=== PATIENT | female | born 1975 | race Hispanic/Latino ===

== ENCOUNTER 2019-01-20 10:02 | Outpatient (CLI) | payer OTHER ==
--- NOTE | 2019-01-20 11:32 | MMO ---
Bilateral MAMMO Bilat Diag [facility]. CLINICAL HISTORY: Patient is 43 years old and is seen for diagnostic exam and lump or thickening in the right breast at 5 o'clock. The patient has no family history of breast cancer. The patient has no personal history of cancer. VIEWS: The views performed were: bilateral craniocaudal with tomosynthesis; bilateral mediolateral oblique with tomosynthesis; and bilateral mediolateral with tomosynthesis. FILMS COMPARED: The present examination has been compared to a prior imaging study performed at [facility] on 01/20/2019. MAMMOGRAM FINDINGS: There are scattered fibroglandular densities. Finding 1: No mass or architectural distortion is seen in the left breast on mammogram or ultrasound in region of reported palpable abnormality at the 5:00 position. Finding 2: There is an intramammary lymph node seen in the upper-outer region of the right breast. There are no suspicious masses, suspicious calcifications, or new areas of architectural distortion. IMPRESSION: FINDING 1: FINDING IN THE LEFT BREAST IS BENIGN. NEGATIVE MAMMOGRAPHIC FINDINGS SHOULD NOT PRECLUDE BIOPSY OF A CLINICALLY SUSPICIOUS PALPABLE ABNORMALITY. FINDING 2: INTRAMAMMARY LYMPH NODE IN THE RIGHT BREAST IS BENIGN. A ROUTINE FOLLOW-UP MAMMOGRAM IN 1 YEAR IS RECOMMENDED. 3BTHE RESULTS OF THIS EXAM WERE SENT TO THE PATIENT.0B ACR BI-RADS Category 2 - Benign finding MAMMOGRAPHY NOTE: 1. A negative mammogram report should not delay a biopsy if a dominant of clinically suspicious mass is present. 2. Approximately 10% to 15% of breast cancers are not detected by mammography. 3. Adenosis and dense breasts may obscure an underlying neoplasm. Reported by: ANU ERVIN MD Electonically Signed: [id number]
--- NOTE | 2019-01-20 15:37 | ULT ---
LIMITED ULTRASOUND BILATERAL BREASTS: HISTORY: Reported palpable abnormality on clinical examination at the 5 o'clock position of left breast. Mamm ographic abnormality in the upper outer right breast on mammographic evaluation. FINDINGS: Limited sonographic evaluation of the left breast was performed at the 5 o'clock position reported ar ea of palpable abnormality. No mass or cystic lesion is seen in this region. No architectural disto rtion or mass is seen on mammographic evaluation. In the upper outer right breast on mammographic evaluation, there is a mass in the upper outer right breast which has the appearance most suggestive of a lymph node given the fatty area centrally. Limi taran sonographic evaluation was performed in this region, and no solid or cystic mass is seen. The ap pearance on mammographic evaluation is most suggestive of a lymph node. IMPRESSION: BIRADS category 2, benign findings. Routine annual mammographic screening is recommended. POS: OFF
== END 2019-01-20 10:03 | disposition home or self-care (01) ==
LOC: BICMAMMO 10:02
PROVIDERS: ATTEND Nurse Practitioner Family
DX: N63.23 Unspecified lump in the left breast, lower outer quadrant (principal)
CPT/HCPCS: 77066; G0279

== ENCOUNTER 2020-03-06 08:10 | Outpatient (CLI) | payer OTHER ==
--- NOTE | 2020-03-06 08:48 | MMO ---
Bilateral MAMMO Bilat Screen [facility]. CLINICAL HISTORY: Patient is 44 years old and is seen for screening. The patient has no family history of breast cancer. The patient has no personal history of cancer. VIEWS: The views performed were: bilateral craniocaudal with tomosynthesis and bilateral mediolateral oblique with tomosynthesis. FILMS COMPARED: The present examination has been compared to a prior imaging study performed at [facility] on 01/20/2019. This study has been interpreted with the assistance of computer-aided detection. MAMMOGRAM FINDINGS: There are scattered fibroglandular densities. There are no suspicious masses, suspicious calcifications, or new areas of architectural distortion. IMPRESSION: THERE IS NO MAMMOGRAPHIC EVIDENCE OF MALIGNANCY. A ROUTINE FOLLOW-UP MAMMOGRAM IN 1 YEAR IS RECOMMENDED. THE RESULTS OF THIS EXAM WERE SENT TO THE PATIENT. ACR BI-RADS Category 1 - Negative MAMMOGRAPHY NOTE: 1. A negative mammogram report should not delay a biopsy if a dominant of clinically suspicious mass is present. 2. Approximately 10% to 15% of breast cancers are not detected by mammography. 3. Adenosis and dense breasts may obscure an underlying neoplasm. Reported by: LATESHA ADAM MD Electonically Signed: [id number]
== END 2020-03-06 08:11 | disposition home or self-care (01) ==
LOC: BICMAMMO 08:10
PROVIDERS: ATTEND Nurse Practitioner Family
DX: Z12.31 Encounter for screening mammogram for malignant neoplasm of breast (principal)
CPT/HCPCS: 77063; 77067

== ENCOUNTER 2023-01-08 15:32 | Inpatient (IN) | payer BC, OTHER ==
[~2023-01-08 15:32] MED LIST: Iopamidol-370 76% 500 ML MDV (1 ML CHARGE) ONE
[2023-01-08] MEDS ORDERED: Promethazine HCl 25 MG/ML VIAL ONE (16:12)
[2023-01-08] MEDS ORDERED: Morphine 4 MG/ML VIAL ONE (16:12)
[2023-01-08 16:22] LABS: #Monocytes 0.2 thou/uL (0.11-0.59); #Neutrophils 8.1 thou/uL (1.40-6.50); %Basophils 0.3 % (0.0-1.0); %Lymphocytes 15.8 % (21.0-51.0); %Monocytes 2.3 % (0.0-10.0); %Neutrophils 81.2 % (42.0-75.0); Hemoglobin 14.4 g/dL (12.0-16.0); Mean Corpuscular HGB CONC 34.2 g/dL (32.0-36.0); Mean Corpuscular Hemoglobin 29.4 pg (27.0-31.0); Mean Corpuscular Volume 86.1 fl (78.0-98.0); Mean Platelet Volume 11.2 fL (7.4-10.4); Platelet Count 281 10x3/uL (130-400); RBC Distribution Width 13.2 % (11.5-14.5); Red Blood Cell (RBC) Count 4.89 mill/uL (4.20-5.40); White Blood Cell (WBC) Count 9.9 10x3/uL (4.8-10.8)
[2023-01-08 16:47] LABS: ALT (SGPT) 13 U/L (8-55); AST (SGOT) 14 U/L (5-34); Albumin 4.6 g/dL (3.5-5.0); Alkaline Phosphatase 43 U/L (40-110); Anion Gap 23 mmol/L (10-20); BUN (Urea Nitrogen) 15 mg/dL (7.0-18.7); Bilirubin, Total 0.6 mg/dL (0.2-1.2); Calc. Creatinine Clearance 0 mL/min (70-130); Calcium 9.8 mg/dL (7.8-10.44); Carbon Dioxide 18 mmol/L (22-29); Chloride 102 mmol/L (98-107); Estimated GFR 108; Globulin 3.9 g/dL (2.4-3.5); Glucose 176 mg/dL (70-105); Lipase 25 U/L (8-78); Potassium 4.2 mmol/L (3.5-5.1); Protein, Total 8.5 g/dL (6.0-8.3); Sodium 139 mmol/L (136-145)
[2023-01-08] MEDS ORDERED: Ondansetron PF 4 MG/2 ML Vial ONE (17:57)
[2023-01-08 18:32] LABS: Pregnancy Test - Urine (BHCG) Negative (Negative); Pregu Control Background? CLEAR/WHITE (CLR/WHITE); Pregu Control Bar Appear? YES (CONTROL BAR); Specific Gravity 1.029 (1.002-1.036)
[2023-01-08 19:03] LABS: Bacteria/HPF None Seen HPF (None Seen); Bilirubin Negative (Negative); Blood, Urine Negative (Negative); CAUTI Indications for Culture Pelvic or flank pain; Clarity Clear (Clear); Glucose, Urine (Dipstick) Greater than 1000 mg/dL (Negative); Ketone, Urine Greater than 150 mg/dL (Negative); Leukocyte 25 Leu/uL (Negative); Nitrite Negative (Negative); Protein, Urine (Dipstick) Negative (Neg-Trace); RBC/HPF 0-3 HPF (0-3); Specific Gravity, Urine 1.028 (1.002-1.036); Squamous Epithelial 0-3 HPF (0-3); Urobilinogen Normal mg/dL (Less than 2); WBC/HPF 0-3 HPF (0-3); pH, Urine 5.5 (5.0-9.0)
[2023-01-08 19:05] LABS: Urine Culture Reflex No No
[2023-01-08] MEDS ORDERED: D5 1/2 NS w/20 mEq KCL 1,000 ML IV PRN ×2 (19:15→20:33)
[2023-01-08] MEDS ORDERED: D5 1/2 NS w/20 mEq KCL 1,000 ML ONE (19:26)
[2023-01-08 20:02] LABS: Actual Bicarbonate (HCO3v) 16.6 mEq/L (22-28); Base Excess -8.8 mEq/L (-2.0 to +3.0); Calcium, Ionized (venous) 1.11 mmol/L (1.16-1.32); Chloride (VBG) 105 mmol/L (98-106); Hematocrit-VBG 43 % (36.0-47.0); Hemoglobin (Hb) 14.7 g/dL (11.7-16.0); Potassium (VBG) 4.29 mmol/L (3.70-5.30); Sodium 141.7 mmol/L (133-146); pH (venous) 7.303 (7.32-7.43)
[2023-01-08] MEDS ORDERED: INSULIN REGULAR IN 0.9 % NACL 100 UNITS/100 ML BAG ONE (20:23)
[2023-01-08] MEDS ORDERED: NS 0.9% w/ 20 MEQ KCL 1,000 ML IV PRN ×2 (20:33)
[2023-01-08] MEDS ORDERED: Dextrose 50% Abboject 50 ML SYRINGE SLOW IVP PRN (20:33)
[2023-01-08] MEDS ORDERED: Electrolyte Replacement Protocol 1 EACH IVPB PRN (20:33)
[2023-01-08] MEDS ORDERED: Sodium Chloride 0.9% 1,000 ML IV PRN ×4 (20:33)
[2023-01-08] MEDS ORDERED: Dextrose 5 %-0.45 % NaCl 1,000 ML IV PRN (20:33)
[2023-01-08] MEDS ORDERED: HUMULIN R 100 UNITS in Sodium Chloride 0.9% 100 ML IVPB SCH (20:45)
[2023-01-08 22:05] LABS: Calcium 8.9 mg/dL (7.8-10.44)
[2023-01-08 22:06] LABS: Anion Gap 19 mmol/L (10-20); BUN (Urea Nitrogen) 13 mg/dL (7.0-18.7); Calc. Creatinine Clearance 0 mL/min (70-130); Carbon Dioxide 15 mmol/L (22-29); Chloride 107 mmol/L (98-107); Estimated GFR 109; Glucose 187 mg/dL (70-105); Magnesium 1.7 mg/dL (1.6-2.6); Phosphorus 3.3 mg/dL (2.3-4.7); Potassium 4.1 mmol/L (3.5-5.1); Sodium 137 mmol/L (136-145)
[2023-01-08] MEDS ORDERED: Ondansetron ODT 4 MG TAB PO PRN (22:46)
[2023-01-08] MEDS ORDERED: Calcium Carbonate 500 MG ChewTAB PO PRN (22:46)
[2023-01-08] MEDS ORDERED: Senokot S 8.6-50 MG TAB PO PRN (22:46)
[2023-01-08] MEDS ORDERED: Acetaminophen 325 MG TAB PO PRN (22:46)
[2023-01-08] MEDS: Ondansetron PF 4 MG/2 ML Vial IVP PRN (23:15)
[2023-01-09 03:01] LABS: Anion Gap 17 mmol/L (10-20); BUN (Urea Nitrogen) 11 mg/dL (7.0-18.7); Calc. Creatinine Clearance 87 mL/min (70-130); Calcium 8.5 mg/dL (7.8-10.44); Carbon Dioxide 12 mmol/L (22-29); Chloride 111 mmol/L (98-107); Estimated GFR 108; Glucose 177 mg/dL (70-105); Potassium 4.1 mmol/L (3.5-5.1); Sodium 136 mmol/L (136-145)
[2023-01-09 03:02] LABS: #Monocytes 0.3 thou/uL (0.11-0.59); #Neutrophils 5.7 thou/uL (1.40-6.50); %Lymphocytes 15.4 % (21.0-51.0); %Monocytes 4.5 % (0.0-10.0); %Neutrophils 79.8 % (42.0-75.0); Hemoglobin 12.4 g/dL (12.0-16.0); Mean Corpuscular HGB CONC 33.7 g/dL (32.0-36.0); Mean Corpuscular Hemoglobin 29.5 pg (27.0-31.0); Mean Corpuscular Volume 87.6 fl (78.0-98.0); Platelet Count 252 10x3/uL (130-400); RBC Distribution Width 13.3 % (11.5-14.5); White Blood Cell (WBC) Count 7.2 10x3/uL (4.8-10.8)
[2023-01-09] MEDS ORDERED: HumaLOG 300 UNITS/3 ML VIAL SC PRN (03:31)
[2023-01-09] MEDS ORDERED: Dextrose 5% in Water 1,000 ML IV PRN (03:31)
[2023-01-09] MEDS ORDERED: Glucagon 1 MG/ML KIT IM PRN (03:31)
[2023-01-09] MEDS ORDERED: Insulin Glargine 30 UNITS/0.3 ML VIAL SC SCH (03:45)
[2023-01-09] MEDS ORDERED: Sodium Bicarb 50 MEQ/50 ML Abboject 8.4% SYRINGE IVP SCH (03:45)
[2023-01-09] MEDS ORDERED: Sodium Bicarb 50 MEQ/50 ML VIAL IVP SCH (04:00)
[2023-01-09] MEDS: Lactated Ringer's 1,000 ML IV SCH ×2 (04:02→14:09)
[2023-01-09 04:21] LABS: Anion Gap 13 mmol/L (10-20); BUN (Urea Nitrogen) 11 mg/dL (7.0-18.7); Calc. Creatinine Clearance 85 mL/min (70-130); Calcium 8.3 mg/dL (7.8-10.44); Carbon Dioxide 17 mmol/L (22-29); Chloride 110 mmol/L (98-107); Estimated GFR 104; Glucose 142 mg/dL (70-105); Potassium 3.8 mmol/L (3.5-5.1); Sodium 136 mmol/L (136-145)
[2023-01-09] MEDS: Dextrose 50% Abboject 50 ML SYRINGE SLOW IVP PRN ×2 (05:42→15:38)
[2023-01-09] MEDS ORDERED: Magnesium 2 GM/50 ML(in water) 2 GM in Premix Bag 1 BAG IVPB SCH (06:00)
[2023-01-09 06:22] LABS: Anion Gap 14 mmol/L (10-20); BUN (Urea Nitrogen) 9 mg/dL (7.0-18.7); Calc. Creatinine Clearance 103 mL/min (70-130); Carbon Dioxide 21 mmol/L (22-29); Chloride 107 mmol/L (98-107); Estimated GFR 112; Glucose 83 mg/dL (70-105); Potassium 3.7 mmol/L (3.5-5.1); Sodium 138 mmol/L (136-145)
[2023-01-09] MEDS ORDERED: Famotidine/PF 20 mg/2ml Vial SLOW IVP SCH (09:00)
[2023-01-09] MEDS: Famotidine 20 MG TAB PO SCH ×2 (09:48→21:48)
[2023-01-09] MEDS: Ondansetron PF 4 MG/2 ML Vial IVP PRN (15:38)
[2023-01-09 18:57] LABS: ALT (SGPT) 12 U/L (8-55); AST (SGOT) 15 U/L (5-34); Alkaline Phosphatase 35 U/L (40-110); Anion Gap 14 mmol/L (10-20); BUN (Urea Nitrogen) 8 mg/dL (7.0-18.7); Bilirubin, Total 0.7 mg/dL (0.2-1.2); Calc. Creatinine Clearance 104 mL/min (70-130); Calcium 8.4 mg/dL (7.8-10.44); Carbon Dioxide 20 mmol/L (22-29); Chloride 105 mmol/L (98-107); Estimated GFR 112; Globulin 3.3 g/dL (2.4-3.5); Glucose 122 mg/dL (70-105); Protein, Total 7.3 g/dL (6.0-8.3); Sodium 136 mmol/L (136-145)
[2023-01-09] MEDS: Promethazine HCl 12.5 MG in Sodium Chloride 0.9% 50 ML IVPB PRN (20:39)
[2023-01-09] MEDS ORDERED: Dicyclomine 10 MG CAP PO PRN (22:42)
[2023-01-10] MEDS: Lactated Ringer's 1,000 ML IV SCH ×2 (00:03→12:14)
[2023-01-10 03:06] LABS: #Monocytes 0.2 thou/uL (0.11-0.59); #Neutrophils 11.5 thou/uL (1.40-6.50); %Basophils 0.1 % (0.0-1.0); %Lymphocytes 8.4 % (21.0-51.0); %Monocytes 1.5 % (0.0-10.0); %Neutrophils 89.6 % (42.0-75.0); Hemoglobin 13.5 g/dL (12.0-16.0); Mean Corpuscular HGB CONC 33.3 g/dL (32.0-36.0); Mean Corpuscular Volume 87.3 fl (78.0-98.0); Mean Platelet Volume 10.8 fL (7.4-10.4); Platelet Count 269 10x3/uL (130-400); RBC Distribution Width 13.3 % (11.5-14.5); Red Blood Cell (RBC) Count 4.65 mill/uL (4.20-5.40); White Blood Cell (WBC) Count 12.8 10x3/uL (4.8-10.8)
[2023-01-10 04:55] LABS: ALT (SGPT) 13 U/L (8-55); AST (SGOT) 14 U/L (5-34); Albumin 4.1 g/dL (3.5-5.0); Alkaline Phosphatase 41 U/L (40-110); Anion Gap 21 mmol/L (10-20); BUN (Urea Nitrogen) 7 mg/dL (7.0-18.7); Bilirubin, Total 0.4 mg/dL (0.2-1.2); Calc. Creatinine Clearance 110 mL/min (70-130); Calcium 8.6 mg/dL (7.8-10.44); Carbon Dioxide 13 mmol/L (22-29); Chloride 104 mmol/L (98-107); Estimated GFR 113; Globulin 3.5 g/dL (2.4-3.5); Glucose 105 mg/dL (70-105); Potassium 3.8 mmol/L (3.5-5.1); Protein, Total 7.6 g/dL (6.0-8.3); Sodium 134 mmol/L (136-145)
[2023-01-10] MEDS: Promethazine HCl 12.5 MG in Sodium Chloride 0.9% 50 ML IVPB PRN ×2 (05:52→10:56)
[2023-01-10] MEDS ORDERED: Dicyclomine 10 MG CAP PO SCH (09:00)
[2023-01-10] MEDS ORDERED: Lactated Ringer's 1,000 ML IV SCH (10:35)
[2023-01-10] MEDS: Famotidine 20 MG TAB PO SCH ×2 (10:59→21:13)
[2023-01-10] MEDS: Scopolamine 1.5 mg/72 hour Patch TD SCH (12:23)
[2023-01-10 14:38] LABS: Anion Gap 23 mmol/L (10-20); BUN (Urea Nitrogen) 8 mg/dL (7.0-18.7); Calc. Creatinine Clearance 96 mL/min (70-130); Calcium 8.8 mg/dL (7.8-10.44); Chloride 105 mmol/L (98-107); Estimated GFR 110; Glucose 109 mg/dL (70-105); Potassium 4.3 mmol/L (3.5-5.1); Sodium 133 mmol/L (136-145)
[2023-01-10 14:43] LABS: Carbon Dioxide 9 mmol/L (22-29)
[2023-01-10] MEDS ORDERED: Sodium Bicarbonate Tab 325 MG TAB PO SCH (15:00)
[2023-01-10] MEDS: Sodium Bicarbonate 75 MEQ in Sodium Chloride 0.45% 1,000 ML IV SCH (18:38)
[2023-01-10] MEDS: Sodium Bicarbonate Tab 325 MG TAB PO SCH (21:13)
[2023-01-11] MEDS: Sodium Bicarbonate 75 MEQ in Sodium Chloride 0.45% 1,000 ML IV SCH ×5 (00:57→22:04)
[2023-01-11] MEDS ORDERED: Pantoprazole 40 MG VIAL IVP SCH (01:30)
[2023-01-11 05:33] LABS: #Monocytes 0.6 thou/uL (0.11-0.59); #Neutrophils 8.4 thou/uL (1.40-6.50); %Basophils 0.2 % (0.0-1.0); %Monocytes 5.6 % (0.0-10.0); %Neutrophils 74.8 % (42.0-75.0); Hemoglobin 13.8 g/dL (12.0-16.0); Mean Corpuscular HGB CONC 32.9 g/dL (32.0-36.0); Mean Corpuscular Hemoglobin 29.5 pg (27.0-31.0); Mean Corpuscular Volume 89.7 fl (78.0-98.0); Mean Platelet Volume 10.9 fL (7.4-10.4); Platelet Count 252 10x3/uL (130-400); RBC Distribution Width 13.4 % (11.5-14.5); Red Blood Cell (RBC) Count 4.68 mill/uL (4.20-5.40); White Blood Cell (WBC) Count 11.2 10x3/uL (4.8-10.8)
[2023-01-11 05:43] LABS: INR-International Normal Ratio 1.1; Prothrombin Time 14.2 sec (12.0-14.7)
[2023-01-11 06:03] LABS: ALT (SGPT) 12 U/L (8-55); AST (SGOT) 13 U/L (5-34); Albumin 3.9 g/dL (3.5-5.0); Alkaline Phosphatase 36 U/L (40-110); Anion Gap 20 mmol/L (10-20); BUN (Urea Nitrogen) 8 mg/dL (7.0-18.7); Bilirubin, Total 0.7 mg/dL (0.2-1.2); Calc. Creatinine Clearance 108 mL/min (70-130); Calcium 8.2 mg/dL (7.8-10.44); Carbon Dioxide 12 mmol/L (22-29); Chloride 103 mmol/L (98-107); Estimated GFR 113; Globulin 3.4 g/dL (2.4-3.5); Glucose 99 mg/dL (70-105); Magnesium 1.9 mg/dL (1.6-2.6); Potassium 3.7 mmol/L (3.5-5.1); Protein, Total 7.3 g/dL (6.0-8.3); Sodium 131 mmol/L (136-145)
[2023-01-11] MEDS ORDERED: Magnesium 2 GM/50 ML(in water) 2 GM in Premix Bag 1 BAG IVPB SCH (08:00)
[2023-01-11] MEDS: Sodium Bicarbonate Tab 325 MG TAB PO SCH ×2 (10:13→21:54)
[2023-01-11] MEDS ORDERED: Ondansetron PF 4 MG/2 ML Vial IVP PRN (10:35)
[2023-01-11] MEDS: Metoclopramide HCl 10 MG/2 ML VIAL IVP SCH ×3 (14:02→21:54)
[2023-01-11] MEDS: Pantoprazole 40 MG VIAL IVP SCH (21:53)
[2023-01-12 04:57] LABS: Anion Gap 12 mmol/L (10-20); BUN (Urea Nitrogen) 6 mg/dL (7.0-18.7); Calc. Creatinine Clearance 114 mL/min (70-130); Calcium 7.6 mg/dL (7.8-10.44); Carbon Dioxide 17 mmol/L (22-29); Chloride 105 mmol/L (98-107); Estimated GFR 115; Glucose 97 mg/dL (70-105); Potassium 3.2 mmol/L (3.5-5.1); Sodium 131 mmol/L (136-145)
[2023-01-12] MEDS ORDERED: Potassium Chloride 20 MEQ TAB PO SCH (06:00)
[2023-01-12] MEDS: Sodium Bicarbonate 75 MEQ in Sodium Chloride 0.45% 1,000 ML IV SCH ×5 (06:12→20:42)
[2023-01-12] MEDS: Metoclopramide HCl 10 MG/2 ML VIAL IVP SCH ×4 (06:24→20:43)
[2023-01-12] MEDS: Potassium Chloride 20 MEQ in Premix Bag 1 BAG IVPB SCH ×2 (06:32→12:44)
[2023-01-12] MEDS: Sodium Bicarbonate Tab 325 MG TAB PO SCH ×2 (08:57→20:43)
[2023-01-12] MEDS: Pantoprazole 40 MG VIAL IVP SCH ×2 (08:58→20:43)
[2023-01-13] MEDS: Sodium Bicarbonate 75 MEQ in Sodium Chloride 0.45% 1,000 ML IV SCH (03:13)
[2023-01-13 04:52] LABS: Anion Gap 17 mmol/L (10-20); BUN (Urea Nitrogen) 7 mg/dL (7.0-18.7); Calc. Creatinine Clearance 112 mL/min (70-130); Calcium 7.9 mg/dL (7.8-10.44); Carbon Dioxide 20 mmol/L (22-29); Chloride 100 mmol/L (98-107); Estimated GFR 114; Glucose 115 mg/dL (70-105); Potassium 2.9 mmol/L (3.5-5.1); Sodium 134 mmol/L (136-145)
[2023-01-13] MEDS: Potassium Chloride 20 MEQ in Premix Bag 1 BAG IVPB SCH ×4 (06:41→13:29)
[2023-01-13] MEDS: Metoclopramide HCl 10 MG/2 ML VIAL IVP SCH ×4 (06:41→21:12)
[2023-01-13] MEDS: Pantoprazole 40 MG VIAL IVP SCH ×2 (08:58→21:12)
[2023-01-13] MEDS: Sodium Bicarbonate Tab 325 MG TAB PO SCH ×2 (08:59→21:12)
[2023-01-13] MEDS: Scopolamine 1.5 mg/72 hour Patch TD SCH (11:17)
[2023-01-13] MEDS: Potassium Chloride 20 MEQ in Lactated Ringer's 1,000 ML IV SCH ×2 (13:06→21:07)
[2023-01-13 14:51] LABS: Anion Gap 18 mmol/L (10-20); BUN (Urea Nitrogen) 6 mg/dL (7.0-18.7); Calc. Creatinine Clearance 103 mL/min (70-130); Calcium 8.7 mg/dL (7.8-10.44); Carbon Dioxide 19 mmol/L (22-29); Chloride 101 mmol/L (98-107); Estimated GFR 112; Glucose 161 mg/dL (70-105); Magnesium 1.8 mg/dL (1.6-2.6); Sodium 134 mmol/L (136-145)
[2023-01-14] MEDS: Potassium Chloride 20 MEQ in Lactated Ringer's 1,000 ML IV SCH (03:30)
[2023-01-14 07:51] LABS: ALT (SGPT) 12 U/L (8-55); AST (SGOT) 13 U/L (5-34); Albumin 3.7 g/dL (3.5-5.0); Alkaline Phosphatase 30 U/L (40-110); Anion Gap 17 mmol/L (10-20); BUN (Urea Nitrogen) 6 mg/dL (7.0-18.7); Bilirubin, Total 0.4 mg/dL (0.2-1.2); Calc. Creatinine Clearance 116 mL/min (70-130); Calcium 8.7 mg/dL (7.8-10.44); Carbon Dioxide 21 mmol/L (22-29); Chloride 99 mmol/L (98-107); Estimated GFR 115; Globulin 3.1 g/dL (2.4-3.5); Glucose 151 mg/dL (70-105); Magnesium 1.6 mg/dL (1.6-2.6); Potassium 3.7 mmol/L (3.5-5.1); Protein, Total 6.8 g/dL (6.0-8.3); Sodium 133 mmol/L (136-145)
[2023-01-14] MEDS: Metoclopramide HCl 10 MG/2 ML VIAL IVP SCH ×2 (07:58→12:04)
[2023-01-14] MEDS: Sodium Bicarbonate Tab 325 MG TAB PO SCH (07:58)
[2023-01-14] MEDS: Pantoprazole 40 MG VIAL IVP SCH (07:59)
[2023-01-14] MEDS ORDERED: Magnesium 2 GM/50 ML(in water) 2 GM in Premix Bag 1 BAG IVPB SCH (08:00)
[2023-01-14 12:08] VITALS: BP 124/82; TEMP 98.1
[2023-01-14 12:17] VITALS: BMI 24.7
== END 2023-01-14 16:08 | disposition home or self-care (01) | DRG 639 ==
LOC: ERS 15:32 → IMCU/EMU 20:32 → T4-B 01-13 16:43
PROVIDERS: ADMIT Student in an Organized Health Care Education/Training Program; ATTEND Internal Medicine
DX: E11.10 Type 2 diabetes mellitus with ketoacidosis without coma (principal); F41.9 Anxiety disorder, unspecified; F32.A Depression, unspecified; I10 Essential (primary) hypertension; K80.20 Calculus of gallbladder without cholecystitis without obstruction; E87.6 Hypokalemia; Z90.49 Acquired absence of other specified parts of digestive tract
CPT/HCPCS: 36415; 36416; 71045; 74177; 76705; 78227; 80048; 80053; 81001; 81025; 82010; 82805; 83605; 83690; 83735; 83930; 84100; 85025; 85610; 93005; 96365; 96366; 96367; 96368; 96375; A9537; C9113; J1815; J2270; J2405; J2550; J2765; J3475; J3480; J7030; J7042; J7050; J7120; J7999; Q9967

== ENCOUNTER 2024-06-12 15:47 | Outpatient (CLI) | payer BC, OTHER | END 2024-06-12 15:48 | disposition home or self-care (01) | LOC: BICMAMMO 15:47 | PROVIDERS: ATTEND Nurse Practitioner Family | DX: Z12.31 Encounter for screening mammogram for malignant neoplasm of breast (principal) | CPT/HCPCS: 77063; 77067 ==